=== PATIENT | female | born 1995 | race Caucasian/White ===

== ENCOUNTER 2016-10-03 09:26 | Emergency (ER) | payer BC ==
[2016-10-03 10:08] LABS: BASOPHILS 0.4 % (0.0-2.0); EOSINOPHILS 1.1 % (0.0-6.0); EOSINOPHILS# 0.1 X 10^3uL (0.0-0.4); HEMATOCRIT 42.6 % (36.0-48.0); HEMOGLOBIN 14.4 g/dL (12.0-16.0); LYMPHOCYTES 23.5 % (20.0-40.0); LYMPHOCYTES# 2.4 X 10^3uL (0.8-3.8); MEAN CELL VOLUME 81.8 fL (80.0-100.0); MEAN CORPUS. HGB CONCENTRATION 33.8 g/dL (32.0-36.0); MEAN CORPUSCULAR HEMOGLOBIN 27.6 pg (29.0-35.0); MEAN PLATELET VOLUME 8.9 fL (7.4-10.4); MONOCYTES 5.4 % (2.0-10.0); MONOCYTES# 0.6 X 10^3uL (0.2-1.0); NEUTROPHILS 69.6 % (54.0-75.0); NEUTROPHILS# 7.3 X 10^3uL (2.6-6.7); PLATELET COUNT 377 X 10^3uL (130-440); RED BLOOD COUNT 5.21 X 10^6uL (4.20-6.10); RED CELL DISTRIBUTION WIDTH 12.4 % (11.5-14.5); WHITE BLOOD COUNT 10.4 X 10^3uL (3.9-10.7)
[2016-10-03 10:13] LABS: A/G RATIO 1.3; ALBUMIN 4.4 g/dL (3.5-5.0); ALKALINE PHOSPHATASE 89 U/L (38-126); ALT 35 U/L (9-52); AST 24 U/L (14-36); BILIRUBIN, TOTAL 0.7 mg/dL (0.2-1.3); BLOOD UREA NITROGEN 10 mg/dL (7-17); CALCIUM 9.7 mg/dL (8.4-10.2); CHLORIDE 105 mmol/L (98-107); EST GLOMERULAR FILTRATION RATE > 60 mL/min; GLUCOSE 90 mg/dL (70-100); MAGNESIUM 2.2 mg/dL (1.6-2.3); POTASSIUM 3.9 mmol/L (3.5-5.1); SODIUM 139 mmol/L (137-145); TOTAL PROTEIN 7.9 g/dL (6.3-8.2)
[2016-10-03 10:24] LABS: URINE MUCUS NONE SEEN (Up to 25%)
[2016-10-03 10:43] LABS: THYROID STIMULATING HORMONE 2.27 uIU/mL (0.47-4.68)
[2016-10-03 10:47] LABS: URINE APPEARANCE CLEAR; URINE BILIRUBIN NEGATIVE (NEGATIVE); URINE BLOOD 10 Ery/uL (1+) (NEGATIVE); URINE COLOR YELLOW; URINE GLUCOSE NORMAL (NEGATIVE); URINE KETONE NEGATIVE (NEGATIVE); URINE LEUKOCYTE ESTERASE 500 WBC/uL (3+) (NEGATIVE); URINE NITRITE NEGATIVE (NEGATIVE); URINE PH 6.5 (5-7); URINE PROTEIN NEGATIVE (NEG - TRACE); URINE UROBILINOGEN 0.2mg/dL (Normal) (NEG-1mg/dL)
[2016-10-03 10:49] LABS: URINE RBC 0-5/hpf (0-5/hpf)
--- NOTE | 2016-10-03 11:22 | ER NURSING DOCUMENTATION ---
Nurse's Notes [facility] Name:Kerline Castañeda Age:20 yrs Sex:Female :1995 Arrival Date:10/03/2016 Time:09:26 Bed5 Private MD: Diagnosis:Hypertension Presentation: 10/03 09:33 Presenting complaint: Patient states: High blood pressure. Transition of care: Home. lp Notified ED Physician of Dr. Olivas notified. 09:33 Acuity: KYLE 3 lp 09:33 Method Of Arrival: Private Vehicle lp Triage Assessment: 09:42 General: Appears in no apparent distress, Behavior is appropriate for age. Pain: Denies lp pain. EENT: No deficits noted. Neuro: No deficits noted. Cardiovascular: No deficits noted. Cardiovascular: Capillary refill < 3 seconds Edema is absent. Pulses are all present. Respiratory: No deficits noted. GI: No deficits noted. : No deficits noted. Derm: No deficits noted. Musculoskeletal: No deficits noted. Historical: - Allergies: PENICILLINS; - Home Meds: 1. proair - PMHx: irregular menses; ASTHMA; - PSHx: None; - Tetanus: < 10 years. - Ebola Screening: : Patient negative for fever greater than or equal to 101.5 degrees Fahrenheit, and additional compatible Ebola Virus Disease symptoms. Patient denies exposure to infectious person. Patient denies travel to an Ebola-affected area in the 21 days before illness onset. . - Immunization history: Flu Vaccine < 1 year. - Social history: Smoking status: Patient states was never smoker of tobacco. Screenin:44 Infectious Disease Risk None. Abuse screen: Denies threats or abuse. Denies injuries lp from another. Nutritional screening: No deficits noted. Assessment: 09:44 See Triage Assessment done by same RN. lp Vital Signs: 09:43 BP 161 / 96; Pulse 90; Resp 16; Temp 98.2(TE); Pulse Ox 94% on R/A; Weight 83.91 kg; lp Height 5 ft. 2 in. (157.48 cm); Pain 0/10; 11:14 BP 150 / 108; Pulse 70; Resp 16; Pulse Ox 96% on R/A; arc 09:43 Body Mass Index 33.84 (83.91 kg, 157.48 cm) lp ED Course: 09:27 Patient arrived in ED. jt 09:33 Pavlish, Loulou, RN is Primary Nurse. lp 09:33 Triage completed. lp 09:[address] Olivas notified. lp 09:44 Valuables Remains with patient Patient has correct armband on for positive lp identification. Placed in gown. Bed in low position. Call light in reach. 09:48 Virgil Olivas MD is Attending Physician. tl1 11:14 Mike Graff MD is Referral Physician. tl1 Administered Medications: No medications were administered Outcome: 11:14 Discharge ordered by . tl1 11:21 Discharged to home ambulatory. lp 11:21 Condition: stable 11:21 Instructed on discharge instructions, follow up and referral plans. medication usage. 11:21 Patient left the ED. lp Signatures: Loulou Parker RN RN Virgil Roman MD MD tl1 Jennifer Mora, Reg Reg Chrissy Gonzalezt
--- NOTE | 2016-10-03 11:23 | ER PHYSICIAN DOCUMENTATION ---
Physician Documentation [facility] [place] Name:Kerline Castañeda Age:20 yrs Sex:Female :1995 Arrival Date:10/03/2016 Time:09:26 Bed5 Private MD: Virgil Walker Disposition: 10/04 21:35 Chart complete. tl1 Disposition: 10/03/16 11:14 Discharged to Home/Self Care. Impression: Hypertension. - Condition is Good. - Discharge Instructions: HYPERTENSION, New (Begin Tx). - Prescriptions for amlodipine 2.5 mg Oral tablet - take 1 tablet by ORAL route once daily; 30 tablet. - Medical Reconciliation form form. - Follow up: Mike Graff MD; When: 7 - 10 days; Reason: Recheck today's complaints, Continuance of care. - Problem is new. - Symptoms are unchanged. HPI: 10/03 09:40 This 20 yrs old Female presents to ER via Private Vehicle with complaints of tl1 High Blood Pressure. 09:40 For about the last month she has had hypertension. Today she checked it and it was high tl1 enough that she became cncerned and came here for evaluation. She denies recreational drug use. No h/a, visual changes, chest pain, dyspnea, hematuria. 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 No prior h/o hypertension.. Historical: - Allergies: PENICILLINS; - Home Meds: 1. proair - PMHx: irregular menses; ASTHMA; - PSHx: None; - Tetanus: < 10 years. - Ebola Screening: : Patient negative for fever greater than or equal to 101.5 degrees Fahrenheit, and additional compatible Ebola Virus Disease symptoms. Patient denies exposure to infectious person. Patient denies travel to an Ebola-affected area in the 21 days before illness onset. . - Immunization history: Flu Vaccine < 1 year. - Social history: Smoking status: Patient states was never smoker of tobacco. ROS: 09:50 Cardiovascular: Negative for chest pain, orthopnea, palpitations, paroxysmal nocturnal tl1 dyspnea. 09:50 All other systems are negative. Exam: 09:50 Constitutional: This is a well developed, well nourished patient who is awake, alert, tl1 and in no acute distress. Head/Face: Normocephalic, atraumatic. Eyes: Pupils equal round and reactive to light, extra-ocular motions intact. Lids and lashes normal. Conjunctiva and sclera are non-icteric and not injected. Cornea within normal limits. Periorbital areas with no swelling, redness, or edema. ENT: Nares patent. No nasal discharge, no septal abnormalities noted. Tympanic membranes are normal and external auditory canals are clear. Oropharynx with no redness, swelling, or masses, exudates, or evidence of obstruction, uvula midline. Mucous membranes moist. Neck: Trachea midline, no thyromegaly or masses palpated, and no cervical lymphadenopathy. Supple, full range of motion without nuchal rigidity, or vertebral point tenderness. No Meningismus. Cardiovascular: Regular rate and rhythm with a normal S1 and S2. No gallops, murmurs, or rubs. Normal PMI, no JVD. No pulse deficits. Respiratory: Lungs have equal breath sounds bilaterally, clear to auscultation and percussion. No rales, rhonchi or wheezes noted. No increased work of breathing, no retractions or nasal flaring. Abdomen/GI: Soft, non-tender, with normal bowel sounds. No distension or tympany. No guarding or rebound. No evidence of tenderness throughout. 09:50 Back: No spinal tenderness. No costovertebral tenderness. Full range of motion. tl1 09:50 Eyes: funduscopic exam reveals discs that are sharp, no appreciated papilledema, no appreciated A-V knicking, no evidence of cotton wool exudatates, no flame hemorrhages. 09:50 Abdomen/GI: no abdominal bruits.. 09:50 Skin: Exam negative for acute changes. 09:50 Neuro: Orientation: is normal, Mentation: is normal, Memory: is normal, Cranial nerves: grossly normal, Motor: moves all fours, Gait: is steady, at a normal pace, without difficulty, appropriate for age. Vital Signs: 09:43 BP 161 / 96; Pulse 90; Resp 16; Temp 98.2(TE); Pulse Ox 94% on R/A; Weight 83.91 kg; lp Height 5 ft. 2 in. (157.48 cm); Pain 0/10; 11:14 BP 150 / 108; Pulse 70; Resp 16; Pulse Ox 96% on R/A; arc 09:43 Body Mass Index 33.84 (83.91 kg, 157.48 cm) lp MDM: 09:48 Patient medically screened. tl1 11:20 Differential diagnosis: primary vs secondary HTN. Data reviewed: vital signs, nurses tl1 notes, lab test result(s), and as a result, I will discharge patient. Data interpreted: cardiac monitor technician: not applicable for this patient encounter. Counseling: I had a detailed discussion with the patient and/or guardian regarding: the historical points, exam findings, and any diagnostic results supporting the discharge/admit diagnosis, lab results, the need for outpatient follow up, to return to the emergency department if symptoms worsen or persist or if there are any questions or concerns that arise at home. Response to treatment: There is no appreciated change of the patient's symptoms at this time, and as a result, I will discharge patient. Special discussion: No urgent problem now, but it seems reasonable to try to bring her blood pressure down a bit and have her get some f/u tests including a renal artery ultrasound, possibly urine metanephrine.. ED course: I told her that because of her hypertension at such a young age, I am concerned about a secondary cause for her HTN such as cushings, pheo, other endocrine problems, renal artery stenosis, thyroid disease.. 10/03 10:15 Order name: CBC AUTO DIF, MDIF/RMOR IF IND; Complete Time: 11: [facility] 10/03 11:11 Interpretation: WHITE BLOOD COUNT 10.4; HEMOGLOBIN 14.4; HEMATOCRIT 42.6; PLATELET tl1 COUNT 377. 10/03 10:16 Order name: COMPREHENSIVE METABOLIC PANEL; Complete Time: 11:13 [facility] 10/03 11:11 Interpretation: Normal. tl1 10/03 10:16 Order name: MAGNESIUM; Complete Time: 11:13 [facility] 10/03 11:12 Interpretation: Normal: MAGNESIUM 2.2. 10/03 10:21 Order name: HCG, SERUM; Complete Time: 11:13 [facility] 10/03 11:12 Interpretation: Normal: HCG, SERUM NEGATIVE. 1 10/03 10:47 Order name: THYROID STIMULATING HORMONE; Complete Time: 11:13 [facility] 10/03 11:12 Interpretation: Normal: THYROID STIMULATING HORMONE 2.27. [facility] 10/03 10:54 Order name: UA W/ MICRO -CULTURE IF IND; Complete Time: 11:13 [facility] 10/03 11:12 Interpretation: Normal Except: URINE LEUKOCYTE ESTERASE 500 WBC/uL (3+); URINE BLOOD 10 tl1 Kirk/uL (1+); URINE SQUAMOUS EPITHELIAL CELL 10-25/hpf; URINE BACTERIA 10-20 ORGANISMS/hpf. 10/03 10:56 Order name: URINE PROTEIN,RANDOM; Complete Time: 11:13 [facility] 10/03 11:13 Interpretation: Normal: URINE PROTEIN,RANDOM 12. tl1 Dispensed Medications: No medications were administered Signatures: Loulou Parker RN RN Virgil Roman MD MD tl1
== END 2016-10-03 11:22 | disposition home or self-care (01) ==
LOC: ER 09:26
DX: I10 Essential (primary) hypertension (principal); Z79.899 Other long term (current) drug therapy
CPT/HCPCS: 36415; 80053; 81001; 83735; 84156; 84443; 84703; 85025; 99281